=== PATIENT | male | born 1995 | race Caucasian/White ===

== ENCOUNTER 2017-10-08 23:10 | Emergency (ER) | payer MEDICAID, OTHER ==
[2017-10-09] MEDS: LORAZEPAM 2 MG INJ IM (01:15)
== END 2017-10-09 06:06 | disposition home or self-care (01) ==
LOC: FTE 23:10
DX: F15.10 Other stimulant abuse, uncomplicated (principal); F17.210 Nicotine dependence, cigarettes, uncomplicated; R40.2142 Coma scale, eyes open, spontaneous, at arrival to emergency department; R40.2252 Coma scale, best verbal response, oriented, at arrival to emergency department; R40.2362 Coma scale, best motor response, obeys commands, at arrival to emergency department
CPT/HCPCS: 93005; 96372; 99284-25

== ENCOUNTER 2017-10-10 08:36 | Emergency (ER) | payer MEDICAID ==
[2017-10-10] MEDS: IBUPROFEN 800 MG TAB PO (09:46)
== END 2017-10-10 10:50 | disposition home or self-care (01) ==
LOC: FTE 08:36
DX: J18.9 Pneumonia, unspecified organism (principal); F17.210 Nicotine dependence, cigarettes, uncomplicated
CPT/HCPCS: 71046; 99283-25